=== PATIENT | male | born 1970 | race Caucasian/White ===

== ENCOUNTER → 2018-11-22 | Outpatient (CLI) | payer OTHER ==
[~2018-11-22] MED LIST: FUROSEMIDE 40 MG INJ IV SCH
== END | disposition home or self-care (01) ==
LOC: NUC 12:57
PROVIDERS: ATTEND Specialist
DX: C64.1 Malignant neoplasm of right kidney, except renal pelvis (principal)
CPT/HCPCS: 78709; J1940